=== PATIENT | male | born 1940 | race Caucasian/White ===

== ENCOUNTER 2019-06-27 10:28 | Day surgery (SDC) | payer MEDICARE, BC ==
[~2019-06-27 10:28] MED LIST: Acetaminophen 325 MG Tab PO PRN; Ondansetron 4 MG/2 ML SDV IVPUSH PRN; Phenylephrine 10% Ophth Soln 5 ML Bot EYERT PRN
[2019-06-27] MEDS ORDERED: Midazolam 1 MG/ML 2 ML SDV IV ONE (10:29)
[2019-06-27] MEDS ORDERED: Sodium Chloride 0.9% 10 ML Syringe IV ONE (10:29)
[2019-06-27] MEDS ORDERED: Dexamethasone 4 MG/ML SDV IV ONE (10:29)
[2019-06-27] MEDS: Proparacaine 0.5% Ophth Soln 15 ML Bottle EYERT ONE (10:49)
[2019-06-27] MEDS: Povidone-Iodine 5% Sterile Ophth Soln 30 ML Bottle EYERT ONE ×2 (10:50→11:13)
[2019-06-27] MEDS: Moxifloxacin 0.5% Ophth Soln 3 ML Bottle EYERT ONE (10:51)
[2019-06-27] MEDS: Phenylephrine 10% Ophth Soln 5 ML Bot EYERT ONE ×2 (10:52→11:14)
[2019-06-27] MEDS: Timolol Maleate 0.5% Ophth Soln 5 ML Bottle EYERT ONE (10:52)
[2019-06-27] MEDS: Sodium Chloride 0.9% 10 ML Syringe FLUSH PRN (10:54)
[2019-06-27] MEDS: Cataract Ophth Solution EYERT ONE (10:54)
[2019-06-27] MEDS: Tetracaine HCl/PF 0.5% 4 ML Bottle EYERT ONE (11:13)
[2019-06-27] MEDS: Lidocaine 1% 30 ML SDV ONE (11:13)
[2019-06-27] MEDS: Chondroitin Sulfate/Hyaluronate Sodium Ophth Inj 0.75 ML Syringe EYERT ONE (11:14)
[2019-06-27] MEDS: Apraclonidine 0.5% Ophth Soln 5 ML Bot EYERT ONE (11:14)
[2019-06-27] MEDS: Balanced Salt Solution Ophth Irrig 500 ML Bottle IOCULAR ONE (11:14)
[2019-06-27] MEDS: Diclofenac Sodium 0.1% Ophth Soln 5 ML Bottle EYERT ONE (11:14)
[2019-06-27] MEDS: Vancomycin 500 MG SDV EYERT ONE (11:15)
--- NOTE | 2019-06-27 12:26 | OR ---
DATE: 06/27/2019 PREOPERATIVE DIAGNOSIS: Visually significant mixed cataract, right eye. POSTOPERATIVE DIAGNOSIS: Visually significant mixed cataract, right eye. PROCEDURE: Extracapsular cataract extraction with intraocular lens implant, right eye. ANESTHESIA: Topical/local MAC. COMPLICATIONS: None. INDICATION: Mr. Lua was seen in the clinic with complaints of blurred vision. His examination revealed visually significant cataract. I explained options, I offered cataract surgery, and I explained risks including the potential for infection, retinal detachment, loss of vision, need for additional surgery, amongst others. We discussed implant options. He has requested a monofocal implant. OPERATIVE DESCRIPTION: After informed consent was obtained and the risks, benefits, and alternatives were explained, the patient was brought to the operative suite and topical anesthesia was administered. The patient was then prepped and draped in the sterile fashion and attention was placed on the right eye. A sterile lid speculum was placed into the right eye to allow operative exposure. A full-thickness paracentesis was made in the temporal portion of the operative eye. Preservative-free lidocaine 0.1 mL was injected into the anterior chamber followed by viscoelastic. A full-thickness corneal incision was then made into the anterior chamber. A bent needle cystotome was used to create a small adelina in the anterior capsule. The capsulorrhexis forceps was then used to create a 360-degree curvilinear capsulorrhexis. The nucleus was then removed using a phacoemulsification handpiece and the remaining cortical material was then removed with irrigation and aspiration handpiece. Following removal of the cortical material, the capsular bag was then inspected and noted to be free of any holes or tears. Viscoelastic was then injected into the capsular bag and the intraocular lens was inserted into the capsular bag. The viscoelastic material was then removed from both the anterior and posterior chambers and from behind the IOL. The lens and capsular bag were then reinspected. The IOL was well centered and the capsular bag intact. The wound and paracentesis sites were inspected and hydrated with balanced saline solution. Both were found to be self- sealing. The intraocular pressure was assessed digitally and found to be within normal range. A good red reflex was noted at the completion of the procedure. No complications occurred during the operation. At the completion of the procedure, Maxitrol, Voltaren, and Iopidine drops were placed into the operative eye. A sterile eye shield was placed over the operative eye and the patient was transported to the postoperative recovery area having tolerated the procedure well. Postoperative instructions were given along with a postoperative appointment. The patient was advised to call with any questions or concerns. [facility] /[id number]
== END 2019-06-27 12:16 | disposition home or self-care (01) ==
LOC: DL.SDS 10:28
PROVIDERS: ATTEND Ophthalmology
DX: H26.8 Other specified cataract (principal); I12.9 Hypertensive chronic kidney disease with stage 1 through stage 4 chronic kidney disease, or unspecified chronic kidney disease; N18.9 Chronic kidney disease, unspecified; I47.1 Supraventricular tachycardia; D50.8 Other iron deficiency anemias; D72.829 Elevated white blood cell count, unspecified; Z98.42 Cataract extraction status, left eye; Z96.1 Presence of intraocular lens; Z79.82 Long term (current) use of aspirin; Z79.899 Other long term (current) drug therapy
CPT/HCPCS: 00142; J1100; J2001; J2250; J3370; V2632

== ENCOUNTER 2024-04-16 10:18 | Emergency (ER) | payer BC, MEDICARE ==
[2024-04-16 11:02] LABS: BASOPHILS PERCENT AUTO 0.1 % (0.0-1.0); EOSINOPHILS PERCENT AUTO 0.9 % (1.0-3.0); HEMOGLOBIN 11.1 g/dL (14.0-18.0); LYMPHOCYTES PERCENT AUTO 23.1 % (20.5-50.1); MEAN CORPUSCULAR HGB CONC 32.6 g/dL (33.0-35.0); MONOCYTES PERCENT AUTO 10.5 % (2-8); NEUTROPHILS PERCENT AUTO 65.4 % (42.2-75.2); PLATELET COUNT,PLT 298 10^3/uL (150-450); RED BLOOD CELL COUNT 3.47 10^6/uL (4.6-6.2); WHITE BLOOD CELL COUNT,WBC 7.5 10^3/uL (5.0-10.0)
[2024-04-16 11:22] LABS: A/G RATIO 1.1; ALBUMIN 3.4 g/dL (3.4-5.0); ANION GAP 12.8 mEq/L (7-13); BILIRUBIN TOTAL 0.5 mg/dL (0.2-1.0); BUN/CREATININE RATIO 20.8 (No establ ref range); CALCIUM 9.3 mg/dL (8.5-10.1); CREATININE 1.83 mg/dL (0.70-1.30); EST CRCL DRUG DOSING (CG) 25.71 mL/min; POTASSIUM,K 3.8 mmol/L (3.5-5.1); PROTEIN TOTAL,TP 6.5 g/dL (6.4-8.2)
[2024-04-16] MEDS: Iopamidol 612 MG/ML 100 ML Bottle IVPUSH ONE (11:34)
== END 2024-04-16 14:00 ==
LOC: DL.ED 10:18
DX: K56.609 Unspecified intestinal obstruction, unspecified as to partial versus complete obstruction (principal); I10 Essential (primary) hypertension; Z86.16 Personal history of COVID-19; Z79.899 Other long term (current) drug therapy
CPT/HCPCS: 36415; 74177; 80053; 84439; 84443; 85025; 99284; 99285; Q9967